=== PATIENT | male | born 1935 | race Caucasian/White ===

== ENCOUNTER 2017-03-26 15:28 | Outpatient (CLI) | payer MEDICARE | END 2017-03-26 15:29 | disposition critical access hospital (66) | LOC: EMS 15:28 | PROVIDERS: ATTEND Surgery | DX: R10.9 Unspecified abdominal pain (principal); R19.7 Diarrhea, unspecified | CPT/HCPCS: A0425; A0427 ==

== ENCOUNTER 2017-03-26 15:46 | Inpatient (IN) | payer MEDICARE ==
[2017-03-26] MEDS ORDERED: HYDROmorphone 1 MG/ML SYRINGE IVP STA (15:57)
[2017-03-26] MEDS ORDERED: ONDANSETRON 4 MG/2 ML VIAL IVP STA (15:57)
[2017-03-26] MEDS ORDERED: SODIUM CHLORIDE 0.9% 1,000 ML IV ONE (15:57)
--- NOTE | 2017-03-26 16:01 | ED Physician Documentation ---
PD HPI ABD PAIN - Stated complaint Stated Complaint: Abd px - Chief complaint Chief Complaint: Abd Pain - History obtained from History obtained from: Patient, EMS - History of Present Illness Timing - onset: Other (81-year-old gentleman with history of coronary bypass and remote traumatic splenectomy with probably incidental appendectomy per him, also history of bowel obstruction presents with fairly sudden onset central abdominal pain that started around the time of the loose bowel movements but no bowel movement since this morning. It is a dull pain. He is not nauseous and has not vomited. Pain does not radiate.) Review of Systems Ten Systems: 10 systems reviewed and negative Constitutional: denies: Fever, Chills Nose: denies: Rhinorrhea / runny nose, Congestion Cardiac: denies: Chest pain / pressure, Palpitations Respiratory: denies: Dyspnea, Cough GI: reports: Diarrhea. denies: Nausea, Vomiting, Hematemesis, Bloody / black stool PD PAST MEDICAL HISTORY - Past Medical History Past Medical History: Yes Cardiovascular: Hypertension, High cholesterol, Coronary artery disease, [place] Endocrine/Autoimmune: None GI: GI bleed, Ulcers, Other : Benign prostate hypertrophy, Kidney stones Psych: None Derm: None - Past Surgical History Past Surgical History: Yes General: Splenectomy Cardiovascular: CABG, Coronary stent - Present Medications Home Medications: Ambulatory Orders Medication Instructions Recorded Confirmed Aspirin [Travis Chewable Aspirin] 81 mg PO DAILY 03/31/14 03/26/17 Metoprolol Tartrate 25 mg PO BID 03/31/14 03/26/17 Mirtazapine 15 mg PO DAILY 03/31/14 03/26/17 Rosuvastatin Calcium [Crestor] 10 mg PO DAILY 03/31/14 03/26/17 Diphenhydramine HCl [Benadryl] 50 mg PO DAILY 04/28/14 03/26/17 Hydrocodone/Acetaminophen 1 - 2 each PO Q6H PRN #15 tablet 04/28/14 03/26/17 [Hydrocodon-Acetaminophen 5-325] - Allergies Allergies/Adverse Reactions: Allergies Allergy/AdvReac Type Severity Reaction Status Date / Time Penicillins Allergy Rash Verified 03/31/14 20:52 - Living Situation Living Situation: reports: With spouse/s.o. - Social History Does the pt smoke?: No Smoking Status: Never smoker Does the pt drink ETOH?: No Does the pt have substance abuse?: No - Family History Family history: reports: Non contributory - Immunizations Immunizations are current?: Yes PD ED PE NORMAL - Vitals Vital signs reviewed: Yes - General General: Alert and oriented X 3, No acute distress - HEENT HEENT: PERRL, EOMI - Neck Neck: Supple, no meningeal sign, No bony TTP - Cardiac Cardiac: RRR, No murmur - Respiratory Respiratory: No respiratory distress, Clear bilaterally - Abdomen Abdomen: Other (Somewhat distended and slightly tympanitic with absent bowel tones and mild upper abdominal tenderness without surgical signs.) - Back Back: No CVA TTP, No spinal TTP - Derm Derm: Normal color, Warm and dry - Extremities Extremities: No deformity, No calf tenderness / cord - Neuro Neuro: Alert and oriented X 3, Normal speech - Psych Psych: Normal mood, Normal affect Results - Vitals Vitals: Vital Signs - 24 hr 03/26/17 03/26/17 03/26/17 15:45 15:51 17:00 Temperature 36.8 C Heart Rate 66 70 Respiratory 17 18 Rate Blood Pressure 167/88 H 122/85 H O2 Saturation 97 96 03/26/17 19:07 Temperature Heart Rate 74 Respiratory 12 Rate Blood Pressure 144/91 H O2 Saturation 96 Oxygen O2 Source Room air - EKG (time done) 1553 Rate: Rate (enter#) (65) Rhythm: NSR [place]: Normal Intervals: Normal ID QRS: Normal Ischemia: Normal ST segments Computer interpretation: Agree with computer - Labs Labs: Laboratory Tests 03/26/17 03/26/17 03/26/17 16:25 16:25 16:25 WBC 11.2 H RBC 5.25 Hgb 17.1 Hct 51.7 MCV 98.4 H MCH 32.6 H MCHC 33.1 RDW 13.5 Plt Count 215 MPV 8.8 Neut # 8.4 H Lymph # 1.5 [place] # 1.0 Eos # 0.2 Baso # 0.0 Absolute Nucleated RBC 0.00 Nucleated RBC % 0.0 Sodium 136 Potassium 4.3 Chloride 100 L Carbon Dioxide 23 Anion Gap 13.0 BUN 16 Creatinine 1.0 Estimated GFR (MDRD) 72 L Glucose 129 H Calcium 9.6 Total Bilirubin 0.9 AST 20 ALT 17 Alkaline Phosphatase 76 Troponin I < 0.04 Total Protein 8.0 Albumin 4.3 Globulin 3.7 Albumin/Globulin Ratio 1.2 Lipase 20 L - Rads (name of study) CT A/P Radiology: EMP read contemporaneously (Developing SBO with adhesions, right inguinal hernia without dilated bowel there.) PD MEDICAL DECISION MAKING - ED course ED course: 81-year-old gentleman presents with abdominal pain examination suggesting small bowel obstruction which is confirmed on CT. Call to the surgeon for consultation at 6:50 PM. NG tube ordered. - Consults Consults: Consulted (name) (Spoke with Dr. Arnett for admission at 7:50 PM.) Departure - Departure Disposition: 66 [facility] DC/Xfer Clinical Impression: Small bowel obstruction Condition: Serious
[2017-03-26 16:30] LABS: BASOPHILS % (AUTO) 0.3 %; EOSINOPHILS # (AUTO) 0.2 10^3/uL (0.0-0.7); HGB - HEMOGLOBIN 17.1 g/dL (14.0-18.0); LYMPHOCYTES # (AUTO) 1.5 10^3/uL (1.5-3.5); LYMPHOCYTES % (AUTO) 13.7 %; MEAN CORPUSCULAR HEMOGLOBIN 32.6 pg (27.0-31.0); MEAN CORPUSCULAR HGB CONC 33.1 g/dL (32.0-36.0); MEAN CORPUSCULAR VOLUME 98.4 fL (80.0-94.0); MEAN PLATELET VOLUME 8.8 fL (7.4-11.4); MONOCYTES % (AUTO) 9.3 %; NEUTROPHILS # (AUTO) 8.4 10^3/uL (1.5-6.6); NEUTROPHILS % (AUTO) 74.7 %; PLT - PLATELET COUNT 215 10^3/uL (130-450); RED BLOOD COUNT 5.25 10^6/uL (4.70-6.10); RED CELL DISTRIBUTION WIDTH 13.5 % (12.0-15.0); WHITE BLOOD COUNT 11.2 x10^3/uL (4.8-10.8)
[2017-03-26] MEDS ORDERED: IOPAMIDOL-300 100 ML VIAL ONE (16:41)
[2017-03-26] MEDS ORDERED: IOPAMIDOL-300 50 ML VIAL ONE (16:41)
[2017-03-26 16:44] LABS: ALBUMIN 4.3 g/dL (3.2-5.5); ALBUMIN/GLOBULIN RATIO 1.2 (1.0-2.2); BILIRUBIN,TOTAL 0.9 mg/dL (0.2-1.0); CALCIUM 9.6 mg/dL (8.5-10.3)
[2017-03-26] MEDS ORDERED: IOPAMIDOL-300 50 ML VIAL PO ONE (18:12)
[2017-03-26] MEDS ORDERED: IOPAMIDOL-300 100 ML VIAL IVP ONE (18:13)
--- NOTE | 2017-03-26 18:34 | CT Preliminary Report ---
Exam: CT ABDOMEN/PELVIS W/ Impression: 1. Several mildly dilated proximal to mid small bowel loops in the left upper quadrant suggesting dev eloping obstruction likely on the basis of adhesions. 2. Right inguinal hernia containing a short segment of nonobstructed small bowel. 3. Diverticulosis. [facility] SITE ID: [id number]
--- NOTE | 2017-03-26 18:42 | CT Report ---
EXAM: CT ABDOMEN AND PELVIS EXAM DATE: 03/26/2017 06:00 PM. CLINICAL HISTORY: IV and PO, abd pain, suspect SBO. COMPARISONS: 03/31/2014 CT. TECHNIQUE: Routine helical CT imaging was performed through the abdomen and pelvis. IV contrast: 50 m L Isovue 300. Enteric contrast: No. Reconstructions: Coronal and sagittal. In accordance with CT protocol optimization, one or more of the following dose reduction techniques w ere utilized for this exam: automated exposure control, adjustment of mA and/or KV based on patient s ize, or use of iterative reconstructive technique. FINDINGS: There is elevation of the left hemidiaphragm. Subpleural nodular focus at the right lung base most li albert secondary to atelectasis. The liver, gallbladder, pancreas and adrenal glands are normal. Status post splenectomy. Splenule is noted in the left upper quadrant. There are numerous bilateral renal cysts measuring up to 8.9 cm on the left and 7.2 cm on the right. No solid renal mass or hydronephrosis. There is diverticulosis without evidence of diverticulitis. Bilateral inguinal hernias seen with a sh ort segment of small bowel protruding into the right inguinal canal. There is a cluster of mildly dil ated proximal left upper quadrant small bowel loops with no obstructing mass or lesion. No free air. No fluid collections. Atherosclerotic aorta without evidence of aneurysm. The urinary bladder is unremarkable. Multilevel lumbar spine diskoid degenerative changes present. No acute bony abnormality. IMPRESSION: 1. Several mildly dilated proximal to mid small bowel loops in the left upper quadrant suggesting dev eloping obstruction likely on the basis of adhesions. 2. Right inguinal hernia containing a short segment of nonobstructed small bowel. 3. Diverticulosis. [facility] Referring Provider Line: [phone] SITE ID: [id number]
[2017-03-26] MEDS ORDERED: ZOLPIDEM 5 MG TABLET PO PRN (20:34)
[2017-03-26] MEDS ORDERED: PROCHLORPERAZINE 10 MG/2 ML VIAL IVP PRN (20:34)
[2017-03-26] MEDS ORDERED: HYDROmorphone 1 MG/ML SYRINGE IVP PRN ×2 (20:34→22:25)
[2017-03-26] MEDS ORDERED: SODIUM CHLORIDE FLUSH 0.9% 10 ML SYRINGE IVP PRN (20:34)
[2017-03-26] MEDS ORDERED: METOPROLOL TARTRATE 25 MG TABLET PO SCH (21:00)
[2017-03-26] MEDS: PANTOPRAZOLE 40 MG VIAL IVP SCH (21:32)
[2017-03-26] MEDS: DEXTROSE 5%-0.9% NACL 1,000 ML IV SCH (21:32)
[2017-03-26] MEDS: SODIUM CHLORIDE FLUSH 0.9% 10 ML SYRINGE IVP SCH (21:32)
[2017-03-26] MEDS: METOPROLOL 5 MG/5 ML VIAL IVP SCH (22:42)
[2017-03-26] MEDS: ACETAMINOPHEN 1,000 MG/100 ML 100 ML IV PRN (23:42)
--- NOTE | 2017-03-27 03:53 | HISTORY & PHYSICAL EXAMINATION ---
DATE OF SERVICE: 03/26/2017 Physician: Deidre Verduzco MD DATE OF ADMISSION: 03/26/2017 CHIEF COMPLAINT: Abdominal pain. HISTORY OF PRESENT ILLNESS: This is a 81-year-old, white male with a history of coronary artery disease with prior IA and coronary artery bypass surgery, and a history of remote traumatic splenectomy with a probable incidental appendectomy according to the patient, and also a history of prior bowel obstructions. The patient states that previously , one episode of abdominal pain, which he thought was a bowel obstruction, turned out to be an IA. The patient presented with rapid onset of pain in the middle of his abdomen associated with one episode of diarrhea. There were no further bowel movements, but he had continued abdominal pain, which worsened and he presented to the emergency room. Imaging studies have revealed that he has a small-bowel obstruction. He has received pain medications and had no nausea, but is now feeling nauseated and has had several emesis which are the appearance of stool. There was no blood. He denies hematemesis or melena or hematochezia. There has been no fever. The pain has now returned since the IV pain medications that were given in the emergency room have worn off. PAST MEDICAL HISTORY: Hypertension, hyperlipidemia, coronary artery disease, prior IA, prior bypass surgery, BPH, kidney stones, peptic ulcer disease, splenectomy, coronary stenting in addition to the bypass surgery. SOCIAL HISTORY: The patient never smoked. He drinks no alcohol. ALLERGIES: PENICILLINS, WHICH GAVE HIM A RASH. MEDICATIONS AT HOME 1. Baby aspirin daily. 2. Metoprolol tartrate 25 mg p.o. b.i.d. 3. Mirtazapine 15 mg p.o. daily. 4. Crestor 10 mg p.o. daily. 5. Benadryl 50 mg p.o. daily. 6. Tylenol With Codeine p.r.n. pain. FAMILY HISTORY: Positive for coronary artery disease and otherwise no other inherited diseases. REVIEW OF SYSTEMS: A comprehensive review of systems was performed and the positives are reported as above in the HPI. PHYSICAL EXAMINATION GENERAL: White male who appears older than his age. He appears in mild to moderate distress from abdominal pain and he has just vomited. VITAL SIGNS: Blood pressure 132/75, pulse is 78 in sinus rhythm, he is afebrile , respiratory rate 18, oxygen saturation 97%. HEENT: Reveals that he appears mildly diaphoretic on his forehead. His oral mucosa is moist. NECK: Shows no JVD in a vertical position. No carotid bruits. CHEST: Clear. HEART: Sounds are normal. ABDOMEN: Mildly distended. It has hyper-tympany. There are no bowel sounds. There is no guarding or rebound. EXTREMITIES: Legs show no clubbing, cyanosis or edema. NEUROLOGIC: Grossly intact. LABORATORY DATA: Sodium 136, potassium 4.3, BUN 16, creatinine 1.0. Troponin is undetectable at less than 0.04. Liver tests are normal. White blood count 11.2, hemoglobin 17, platelet count normal at 215. There was no INR done. EKG: Normal sinus rhythm. Small Q-waves are present in leads III and aVF, and there is early RS transition (consider posterior inferior IA old). Flat T waves in the lateral leads. IMAGING: A CT of the abdomen and pelvis was done that shows several mildly dilated proximal to mid small bowel loops in the left upper quadrant, suggesting developing obstruction, probably on the basis of adhesions, right inguinal hernia with a short segment of nonobstructed small bowel in it, and diverticulosis is seen. IMPRESSION/DIAGNOSES 1. Small-bowel obstruction. 2. 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 3. Prior bowel obstructions probably on the basis of adhesions after he had splenectomy and possibly an appendectomy. PLAN: Bowel rest with NG tube decompression and n.p.o. status, and change his p.o. cardiac medications to IV. The patient is refusing the NG tube and states he will "use it only as a last resort." Continue with IV pain control, as well as IV antiemetics. Begin IV hydration, which was also given in the emergency room. Follow his CBC, electrolytes, creatinine, and magnesium. Start the patient on IV Protonix for stress ulcer prophylaxis. Hold his aspirin in case of necessary surgery in case of complications. Obtain a surgical consult ( Dr. Masterson was already called by the emergency room doctor, I was told). Follow his bowel obstruction with KUB films. Follow his EKG for changes and troponin in the minute likelihood that this could result in an IA, as he states has happened before. TD: 03/27/2017 04:52 SEVEN
[2017-03-27 05:41] LABS: BILIRUBIN,URINE NEGATIVE (NEGATIVE); GLUCOSE, URINE (UA) NEGATIVE (NEGATIVE); KETONES,URINE (UA) TRACE mg/dL (NEGATIVE); LEUKOCYTE ESTERASE, URINE NEGATIVE (NEGATIVE); NITRITE,URINE NEGATIVE (NEGATIVE); OCCULT BLOOD,URINE TRACE-INTA (NEGATIVE); PH,URINE 5.5 PH (5.0-7.5); PROTEIN,URINE NEGATIVE (NEGATIVE); UROBILINOGEN,URINE 0.2 (NORMAL) E.U./dL (NORMAL)
[2017-03-27 05:44] LABS: CLARITY,URINE CLEAR (CLEAR)
[2017-03-27 05:48] LABS: BASOPHILS % (AUTO) 0.1 %; EOSINOPHILS % (AUTO) 0.4 %; HGB - HEMOGLOBIN 16.5 g/dL (14.0-18.0); LYMPHOCYTES # (AUTO) 1.5 10^3/uL (1.5-3.5); LYMPHOCYTES % (AUTO) 12.9 %; MEAN CORPUSCULAR HEMOGLOBIN 33.3 pg (27.0-31.0); MEAN CORPUSCULAR HGB CONC 33.2 g/dL (32.0-36.0); MEAN CORPUSCULAR VOLUME 100.5 fL (80.0-94.0); MEAN PLATELET VOLUME 9.3 fL (7.4-11.4); MONOCYTES # (AUTO) 1.3 10^3/uL (0.0-1.0); MONOCYTES % (AUTO) 11.8 %; NEUTROPHILS # (AUTO) 8.5 10^3/uL (1.5-6.6); NEUTROPHILS % (AUTO) 74.8 %; PLT - PLATELET COUNT 191 10^3/uL (130-450); RED BLOOD COUNT 4.95 10^6/uL (4.70-6.10); RED CELL DISTRIBUTION WIDTH 13.7 % (12.0-15.0); WHITE BLOOD COUNT 11.4 x10^3/uL (4.8-10.8)
[2017-03-27 05:54] LABS: CALCIUM 8.6 mg/dL (8.5-10.3); MAGNESIUM 1.9 mg/dL (1.7-2.8)
[2017-03-27] MEDS: SODIUM CHLORIDE FLUSH 0.9% 10 ML SYRINGE IVP SCH ×3 (06:23→16:41)
[2017-03-27] MEDS: PANTOPRAZOLE 40 MG VIAL IVP SCH ×2 (06:23→16:39)
[2017-03-27] MEDS: METOPROLOL 5 MG/5 ML VIAL IVP SCH ×3 (06:23→22:20)
--- NOTE | 2017-03-27 07:22 | XRAY Report ---
EXAM: ABDOMEN RADIOGRAPHY ONE VIEW EXAM DATE: 03/27/2017. CLINICAL HISTORY: Follow-up small bowel obstruction. COMPARISON: CT done 03/26/2017. TECHNIQUE: AP supine views, 2 images. FINDINGS:Persistent dilatation of small bowel in the upper abdomen, measuring up to 5.3 cm. Gas scatt ered throughout nondilated distal small bowel. Oral contrast given for the CT is in the ascending col on. Radiographic contrast from the CT is also in the urinary bladder. Lower lungs are clear. Heart si ze is normal. Degenerative changes of the spine. Status post sternotomy and mediastinal surgery. IMPRESSION: Persistent partial mid small bowel obstruction, dilated small bowel in the upper abdomen measures up to 5.3 cm diameter. Oral contrast given for CT done yesterday is in the ascending colon. [facility] Referring Provider Line: [phone] SITE ID: [id number]
[2017-03-27] MEDS: DEXTROSE 5%-0.9% NACL 1,000 ML IV SCH ×2 (07:45→16:41)
--- NOTE | 2017-03-27 11:23 | PROVIDER PROGRESS NOTE ---
Subjective - Prog Note Date Prog Note Date: 03/27/17 Prog Note Time: 11:20 - Subjective Pt reports feeling: Improved (Patient noted slight improvement, nausea is not as bad as it had been. Patient is still refusing an NG tube at this time.) Current Medications - Current Medications Current Medications: Tylenol, D5W, Dilaudid, metoprolol, pantoprazole, Compazine Objective - Vital Signs/Intake & Output Reviewed Vital Signs: Yes Vital Signs: Vital Signs x48h Temp Pulse Resp BP BP Pulse Ox 03/27/17 07:55 36.6 C 62 18 121/71 95 03/27/17 06:23 125/66 Intake & Output: Intake & Output 03/24/17 03/25/17 03/26/17 03/27/17 23:59 23:59 23:59 23:59 Intake Total 1000 1100 Output Total 400 300 Balance 600 800 - Objective General Appearance: positive: No acute distress, Alert Eyes Bilateral: positive: Normal inspection, PERRL, EOMI, No lid inflammation, Conjunctivae nml, No scleral icterus ENT: positive: ENT inspection nml, Pharynx nml, No signs of dehydration. negative: Purulent nasal drainage, Pharyngeal erythema, Oral lesions Neck: positive: Nml inspection, Thyroid nml, No JVD, Trachea midline. negative : Thyromegaly Respiratory: positive: Chest non-tender, No respiratory distress, Breath sounds nml. negative: Wheezes, Rales, Rhonchi Cardiovascular: positive: Regular rate & rhythm, No murmur, No gallop. negative : Extrasystoles Abdomen: positive: No organomegaly, No distention, Tenderness. negative: Rebound, Hepatomegaly, Splenomegaly, Mass Back: positive: Nml inspection. negative: CVA tenderness (R), CVA tenderness (L ) Skin: positive: Color nml, No rash, Warm, Dry. negative: Cyanosis Extremities: positive: Non-tender, Full ROM, Nml appearance, No pedal edema Neurologic/Psychiatric: positive: Oriented x3, CN's nml (2-12), Motor nml, Sensation nml, Mood/affect nml - Lab Results Fish Bones: 03/27/17 04:55 03/27/17 04:55 Other Labs: Lab Results x24hrs 03/27/17 03/27/1718 Range/Units 05:00 04:55 04:55 WBC (4.8-10.8) x10^3/uL RBC (4.70-6.10) 10^6/uL Hgb (14.0-18.0) g/dL Hct (42.0-52.0) % MCV (80.0-94.0) fL MCH (27.0-31.0) pg MCHC (32.0-36.0) g/dL RDW (12.0-15.0) % Plt Count (130-450) 10^3/uL MPV (7.4-11.4) fL Neut # (1.5-6.6) 10^3/uL Lymph # (1.5-3.5) 10^3/uL [place] # (0.0-1.0) 10^3/uL Eos # (0.0-0.7) 10^3/uL Baso # (0.0-0.1) 10^3/uL Absolute Nucleated RBC x10^3/uL Nucleated RBC % /100WBC Sodium 135 (135-145) mmol/L Potassium 4.2 (3.5-5.0) mmol/L Chloride 104 (101-111) mmol/L Carbon Dioxide 23 (21-32) mmol/L Anion Gap 8.0 (6-13) BUN 13 (6-20) mg/dL Creatinine 1.0 (0.6-1.2) mg/dL Estimated GFR (MDRD) 72 L (>89) Glucose 127 H (70-100) mg/dL Calcium 8.6 (8.5-10.3) mg/dL Magnesium 1.9 (1.7-2.8) mg/dL Troponin I < 0.04 (<0.49) ng/mL Urine Color YELLOW Urine Clarity CLEAR (CLEAR) Urine pH 5.5 (5.0-7.5) PH Ur Specific [place] 1.020 (1.002-1.030) Urine Protein NEGATIVE (NEGATIVE) mg/dL Urine Glucose (UA) NEGATIVE (NEGATIVE) mg/dL Urine Ketones TRACE (NEGATIVE) mg/dL Urine Occult Blood TRACE-INTA (NEGATIVE) Urine Nitrite NEGATIVE (NEGATIVE) Urine Bilirubin NEGATIVE (NEGATIVE) Urine Urobilinogen 0.2 (NORMAL) (NORMAL) E.U./dL Ur Leukocyte Esterase NEGATIVE (NEGATIVE) Ur Microscopic Review NOT INDICATED Urine Culture Comments NOT INDICATED 03/27/17 Range/Units 04:55 WBC 11.4 H (4.8-10.8) x10^3/uL RBC 4.95 (4.70-6.10) 10^6/uL Hgb 16.5 (14.0-18.0) g/dL Hct 49.7 (42.0-52.0) % MCV 100.5 H (80.0-94.0) fL MCH 33.3 H (27.0-31.0) pg MCHC 33.2 (32.0-36.0) g/dL RDW 13.7 (12.0-15.0) % Plt Count 191 (130-450) 10^3/uL MPV 9.3 (7.4-11.4) fL Neut # 8.5 H (1.5-6.6) 10^3/uL Lymph # 1.5 (1.5-3.5) 10^3/uL [place] # 1.3 H (0.0-1.0) 10^3/uL Eos # 0.0 (0.0-0.7) 10^3/uL Baso # 0.0 (0.0-0.1) 10^3/uL Absolute Nucleated RBC 0.01 x10^3/uL Nucleated RBC % 0.1 /100WBC Sodium (135-145) mmol/L Potassium (3.5-5.0) mmol/L Chloride (101-111) mmol/L Carbon Dioxide (21-32) mmol/L Anion Gap (6-13) BUN (6-20) mg/dL Creatinine (0.6-1.2) mg/dL Estimated GFR (MDRD) (>89) Glucose (70-100) mg/dL Calcium (8.5-10.3) mg/dL Magnesium (1.7-2.8) mg/dL Troponin I (<0.49) ng/mL Urine Color Urine Clarity (CLEAR) Urine pH (5.0-7.5) PH Ur Specific [place] (1.002-1.030) Urine Protein (NEGATIVE) mg/dL Urine Glucose (UA) (NEGATIVE) mg/dL Urine Ketones (NEGATIVE) mg/dL Urine Occult Blood (NEGATIVE) Urine Nitrite (NEGATIVE) Urine Bilirubin (NEGATIVE) Urine Urobilinogen (NORMAL) E.U./dL Ur Leukocyte Esterase (NEGATIVE) Ur Microscopic Review Urine Culture Comments - Diagnostic Imaging Diagnostic Imaging Results: positive: Final report reviewed Diagnostic Imaging Comments: EXAM: CT ABDOMEN AND PELVIS EXAM DATE: 03/26/2017 06:00 PM. CLINICAL HISTORY: IV and PO, abd pain, suspect SBO. COMPARISONS: 03/31/2014 CT. TECHNIQUE: Routine helical CT imaging was performed through the abdomen and pelvis. IV contrast: 50 mL Isovue 300. Enteric contrast: No. Reconstructions: Coronal and sagittal. In accordance with CT protocol optimization, one or more of the following dose reduction techniques were utilized for this exam: automated exposure control, adjustment of mA and/or KV based on patient size, or use of iterative reconstructive technique. FINDINGS: There is elevation of the left hemidiaphragm. Subpleural nodular focus at the right lung base most likely secondary to atelectasis. The liver, gallbladder, pancreas and adrenal glands are normal. Status post splenectomy. Splenule is noted in the left upper quadrant. There are numerous bilateral renal cysts measuring up to 8.9 cm on the left and 7.2 cm on the right. No solid renal mass or hydronephrosis. There is diverticulosis without evidence of diverticulitis. Bilateral inguinal hernias seen with a short segment of small bowel protruding into the right inguinal canal. There is a cluster of mildly dilated proximal left upper quadrant small bowel loops with no obstructing mass or lesion. No free air. No fluid collections. Atherosclerotic aorta without evidence of aneurysm. The urinary bladder is unremarkable. Multilevel lumbar spine diskoid degenerative changes present. No acute bony abnormality. IMPRESSION: 1. Several mildly dilated proximal to mid small bowel loops in the left upper quadrant suggesting developing obstruction likely on the basis of adhesions. 2. Right inguinal hernia containing a short segment of nonobstructed small bowel. 3. Diverticulosis. EXAM: ABDOMEN RADIOGRAPHY ONE VIEW EXAM DATE: 03/27/2017. CLINICAL HISTORY: Follow-up small bowel obstruction. COMPARISON: CT done 03/26/2017. TECHNIQUE: AP supine views, 2 images. FINDINGS:Persistent dilatation of small bowel in the upper abdomen, measuring up to 5.3 cm. Gas scattered throughout nondilated distal small bowel. Oral contrast given for the CT is in the ascending colon. Radiographic contrast from the CT is also in the urinary bladder. Lower lungs are clear. Heart size is normal. Degenerative changes of the spine. Status post sternotomy and mediastinal surgery. IMPRESSION: Persistent partial mid small bowel obstruction, dilated small bowel in the upper abdomen measures up to 5.3 cm diameter. Oral contrast given for CT done yesterday is in the ascending colon. Assessment/Plan - Problem List (1) Small bowel obstruction Impression: At this time patient's obstruction is partial and he is passing gas. We will rest his bowel and monitor him overnight and start him on clear liquid diet tomorrow. If he tolerates this we will move him to a full diet (2) Hypertension Impression: Well-managed, continue with the present medication regimen. Qualifiers: Hypertension type: essential hypertension Qualified Code(s): I10 - Essential (primary) hypertension (3) Hyperlipidemia Impression: Well-managed, continue present medication regimen.
[2017-03-27] MEDS: ACETAMINOPHEN 1,000 MG/100 ML 100 ML IV PRN (20:18)
[2017-03-27] MEDS ORDERED: diphenhydrAMINE 25 MG CAPSULE PO SCH (21:00)
[2017-03-28] MEDS: DEXTROSE 5%-0.9% NACL 1,000 ML IV SCH ×2 (02:37→15:30)
[2017-03-28] MEDS: SODIUM CHLORIDE FLUSH 0.9% 10 ML SYRINGE IVP SCH ×2 (06:07→14:46)
[2017-03-28] MEDS: PANTOPRAZOLE 40 MG VIAL IVP SCH (06:07)
[2017-03-28] MEDS: METOPROLOL 5 MG/5 ML VIAL IVP SCH (06:08)
--- NOTE | 2017-03-28 14:53 | Discharge Plan ---
Discharge Plan Disposition: 01 Home, Self Care Condition: Serious Diet: Regular Activity Restrictions: No Restrictions Shower Restrictions: No Driving Restrictions: No Weight Bearing: Full Weight No Smoking: If you smoke, Please STOP! Call for help. Follow-up with: Marko Cifuentes MD [Primary Care Provider] -
--- NOTE | 2017-03-28 14:55 | DISCHARGE SUMMARY ---
Discharge Summary Admit Date: 03/26/17 Discharge Date: 03/28/17 Discharging Provider: Gemma Calloway DO Primary Care Provider: Marko Cifuentes Code Status: Attempt Resuscitation Condition at Discharge: Fair Discharge Disposition: Home, Self Care - DIAGNOSES Admission Diagnoses: Partial small bowel obstruction Discharge Diagnoses with Status of Each Condition: Partial small bowel obstruction self resolved. - HPI History of Present Illness: Mr. Evens Romero Jr is a 81-year-old white male with a history of coronary artery disease with prior MRI and coronary artery bypass surgery and a history of remote traumatic splenectomy with probable incidental appendectomy according to the patient as well as a history of prior bowel obstructions secondary to adhesions. The last episode which caused a small bowel obstruction was 5 years ago. He experienced rapid onset of pain in the middle of his abdomen associated with one episode of diarrhea and there were no further bowel movements. The patient had multiple episodes of abdominal pain and cramping and an abdominal x-ray showed a partial small bowel obstruction. - HOSPITAL COURSE Hospital Course: The patient was admitted to medical surgical bed and was placed on n.p.o. status. He was found the next morning to have bowel sounds and had passed gas. Over the next 2 days the partial obstruction continued to relieve itself until the patient was able to eat a clear liquid diet last night and a regular diet today.He will now be discharged home with instructions to follow-up with his primary care provider, Dr. Cifuentes - ALLERGIES Allergies/Adverse Reactions: Allergies Allergy/AdvReac Type Severity Reaction Status Date / Time Penicillins Allergy Rash Verified 03/31/14 20:52 - MEDICATIONS Home Medications: Ambulatory Orders Medication Instructions Recorded Confirmed Aspirin [Travis Chewable Aspirin] 81 mg PO DAILY 03/31/14 03/26/17 Metoprolol Tartrate 25 mg PO BID 03/31/14 03/26/17 Mirtazapine 15 mg PO QPM 03/31/14 03/27/17 Diphenhydramine HCl [Benadryl] 50 mg PO QPM 04/28/14 03/27/17 Pravastatin [Pravachol] 40 mg PO QPM 03/27/17 03/27/17 - PHYSICAL EXAM AT DISCHARGE General Appearance: positive: No acute distress, Alert Eyes Bilateral: positive: Normal inspection, PERRL, EOMI, No lid inflammation, Conjunctivae nml ENT: positive: ENT inspection nml, Pharynx nml, No signs of dehydration Neck: positive: Nml inspection, Thyroid nml, No JVD, Trachea midline. negative : Thyromegaly Respiratory: positive: Chest non-tender, No respiratory distress, Breath sounds nml. negative: Wheezes, Rales, Rhonchi Cardiovascular: positive: Regular rate & rhythm, No murmur, No gallop. negative : Systolic murmur, Diastolic murmur Peripheral Pulses: positive: 1+ Abdomen: positive: Non-tender, No organomegaly, Nml bowel sounds, No distention Back: positive: Nml inspection. negative: CVA tenderness (R), CVA tenderness (L ) Skin: positive: Color nml, No rash, Warm, Dry. negative: Cyanosis Extremities: positive: Non-tender, Full ROM, Nml appearance, No pedal edema Neurologic/Psychiatric: positive: Oriented x3, CN's nml (2-12), Motor nml, Sensation nml, Mood/affect nml - LABS Result Diagrams: 03/27/17 04:55 03/27/17 04:55 - FOLLOW UP Follow Up: Patient will follow-up with Dr. Cifuentes next week - TIME SPENT Time Spent in Discharge (Minutes): 30
[2017-03-28 15:59] VITALS: BP 154/64
[2017-03-29] MEDS ORDERED: METOPROLOL SUCCINATE 50 MG TABLET PO SCH (09:00)
== END 2017-03-28 17:48 | disposition home or self-care (01) | DRG 390 ==
LOC: EDUNIT# → ED 15:46 → MS2 20:34
PROVIDERS: ADMIT Internal Medicine; ATTEND Hospitalist
DX: K56.609 Unspecified intestinal obstruction, unspecified as to partial versus complete obstruction (principal); I10 Essential (primary) hypertension; I25.10 Atherosclerotic heart disease of native coronary artery without angina pectoris; E78.00 Pure hypercholesterolemia, unspecified; R19.7 Diarrhea, unspecified; E78.5 Hyperlipidemia, unspecified; N40.0 Benign prostatic hyperplasia without lower urinary tract symptoms; Z90.81 Acquired absence of spleen; Z87.11 Personal history of peptic ulcer disease; Z87.442 Personal history of urinary calculi; I25.2 Old myocardial infarction; Z95.1 Presence of aortocoronary bypass graft; Z95.5 Presence of coronary angioplasty implant and graft; Z79.82 Long term (current) use of aspirin; Z79.891 Long term (current) use of opiate analgesic; Z79.899 Other long term (current) drug therapy
CPT/HCPCS: 36415; 74018; 74177; 80048; 80053; 81001; 81003; 83690; 83735; 84484; 85025; 87086; 93005; 96361; 96374; 96375; 99284; 99285

== ENCOUNTER 2017-06-18 07:15 | Outpatient (CLI) | payer MEDICARE ==
[2017-06-18 12:59] LABS: BASOPHILS # (AUTO) 0.1 10^3/uL (0.0-0.1); BASOPHILS % (AUTO) 0.8 %; EOSINOPHILS # (AUTO) 0.5 10^3/uL (0.0-0.7); EOSINOPHILS % (AUTO) 6.9 %; HGB - HEMOGLOBIN 17.1 g/dL (14.0-18.0); LYMPHOCYTES # (AUTO) 2.7 10^3/uL (1.5-3.5); LYMPHOCYTES % (AUTO) 37.1 %; MEAN CORPUSCULAR HEMOGLOBIN 33.7 pg (27.0-31.0); MEAN CORPUSCULAR HGB CONC 34.2 g/dL (32.0-36.0); MEAN CORPUSCULAR VOLUME 98.4 fL (80.0-94.0); MEAN PLATELET VOLUME 9.6 fL (7.4-11.4); MONOCYTES % (AUTO) 13.4 %; NEUTROPHILS % (AUTO) 41.8 %; PLT - PLATELET COUNT 214 10^3/uL (130-450); RED BLOOD COUNT 5.07 10^6/uL (4.70-6.10); RED CELL DISTRIBUTION WIDTH 13.9 % (12.0-15.0); WHITE BLOOD COUNT 7.1 x10^3/uL (4.8-10.8)
[2017-06-18 13:29] LABS: ALBUMIN/GLOBULIN RATIO 1.1 (1.0-2.2); ALKALINE PHOSPHATASE 68 IU/L (42-121); ALT ALANINE AMINOTRANSFERASE 18 IU/L (10-60); AST ASPARTATE AMINOTRANSFERASE 18 IU/L (10-42); BILIRUBIN,TOTAL 1.1 mg/dL (0.2-1.0); BUN - BLOOD UREA NITROGEN 19 mg/dL (6-20); CALCIUM 9.1 mg/dL (8.5-10.3); CARBON DIOXIDE - CO2 25 mmol/L (21-32); CHLORIDE 105 mmol/L (101-111); CHOL/HDL RATIO 4.3 (<5.0); CHOLESTEROL 133 mg/dL; CREATININE 1.1 mg/dL (0.6-1.2); GFR - MDRD 65 (>89); GLUCOSE 113 mg/dL (70-100); HDL CHOLESTEROL 31 mg/dL; LDL CHOLESTEROL,CALCULATED 78 mg/dL; LDL/HDL RATIO 2.5 (<3.6); SODIUM 136 mmol/L (135-145); TOTAL PROTEIN 7.5 g/dL (6.7-8.2); VLDL CHOLESTEROL 24 mg/dL
== END 2017-06-18 07:16 | disposition home or self-care (01) ==
LOC: LAB.WCP 07:15
PROVIDERS: ATTEND Family Medicine
DX: I25.10 Atherosclerotic heart disease of native coronary artery without angina pectoris (principal); I10 Essential (primary) hypertension
CPT/HCPCS: 36415; 80053; 80061; 83721; 85025

== ENCOUNTER 2018-07-10 08:00 | Outpatient (CLI) | payer MEDICARE ==
[2018-07-10 12:34] LABS: BASOPHILS % (AUTO) 0.5 %; EOSINOPHILS # (AUTO) 0.4 10^3/uL (0.0-0.7); HGB - HEMOGLOBIN 16.1 g/dL (14.0-18.0); LYMPHOCYTES # (AUTO) 1.7 10^3/uL (1.5-3.5); LYMPHOCYTES % (AUTO) 26.1 %; MEAN CORPUSCULAR HEMOGLOBIN 33.1 pg (27.0-31.0); MEAN CORPUSCULAR HGB CONC 33.2 g/dL (32.0-36.0); MEAN CORPUSCULAR VOLUME 99.6 fL (80.0-94.0); MEAN PLATELET VOLUME 9.1 fL (7.4-11.4); MONOCYTES # (AUTO) 0.6 10^3/uL (0.0-1.0); MONOCYTES % (AUTO) 9.3 %; NEUTROPHILS # (AUTO) 3.6 10^3/uL (1.5-6.6); NEUTROPHILS % (AUTO) 57.1 %; PLT - PLATELET COUNT 218 10^3/uL (130-450); RED BLOOD COUNT 4.87 10^6/uL (4.70-6.10); WHITE BLOOD COUNT 6.4 x10^3/uL (4.8-10.8)
[2018-07-10 12:38] LABS: ALBUMIN 3.7 g/dL (3.2-5.5); ALBUMIN/GLOBULIN RATIO 1.1 (1.0-2.2); ALKALINE PHOSPHATASE 69 IU/L (42-121); ALT ALANINE AMINOTRANSFERASE 18 IU/L (10-60); AST ASPARTATE AMINOTRANSFERASE 21 IU/L (10-42); BILIRUBIN,TOTAL 0.8 mg/dL (0.2-1.0); BUN - BLOOD UREA NITROGEN 21 mg/dL (6-20); CARBON DIOXIDE - CO2 26 mmol/L (21-32); CHLORIDE 106 mmol/L (101-111); CHOL/HDL RATIO 3.2 (<5.0); CHOLESTEROL 128 mg/dL; CREATININE 0.9 mg/dL (0.6-1.2); GFR - MDRD 81 (>89); GLUCOSE 109 mg/dL (70-100); HDL CHOLESTEROL 40 mg/dL; LDL CHOLESTEROL,CALCULATED 70 mg/dL; LDL/HDL RATIO 1.8 (<3.6); SODIUM 140 mmol/L (135-145); TOTAL PROTEIN 7.1 g/dL (6.7-8.2); VLDL CHOLESTEROL 18 mg/dL
== END 2018-07-10 23:59 | disposition home or self-care (01) ==
LOC: LAB.WCP 08:00
PROVIDERS: ATTEND Family Medicine
DX: I10 Essential (primary) hypertension (principal); I25.10 Atherosclerotic heart disease of native coronary artery without angina pectoris
CPT/HCPCS: 36415; 80053; 80061; 83721; 84443; 85025